=== PATIENT | female | born 2000 | race Caucasian/White ===

== ENCOUNTER 2025-01-08 23:37 | Emergency (ER) | payer OTHER ==
[2025-01-09] MEDS ORDERED: CEFTRIAXONE 1000 MG/VIAL ONE ×2 (00:42→00:43)
[2025-01-09] MEDS ORDERED: NA CHLORIDE 0.9% 1,000 ML ONE (00:42)
[2025-01-09 00:53] LABS: Absolute Eosinophils 0.1 K/uL (0-0.5); Absolute Lymphocytes (CBC) 2.1 K/uL (0.7-4.9); Absolute Monocytes 0.8 K/uL (0.1-1.3); Absolute Neutrophil 6.1 K/uL (1.8-8.0); Basophils % 0.5 % (0-1.3); Eosinophils % 0.6 % (0-4.4); Hematocrit 46.7 % (36.0-45.0); Hemoglobin 15.6 g/dL (12.0-15.0); Lymphocytes % 23.2 % (15.3-44.8); MCH 27.7 pg (27.0-35.0); MCHC 33.3 g/dL (32.0-36.0); MPV 8.1 fL (7.6-11.3); Monocytes % 8.6 % (3.3-12.3); Neutrophils % 67.1 % (41.7-73.7); Nucleated RBC Absolute Count 0.1 (0-0); Nucleated Red Blood Cells % 0.6 % (0-0); Platelets 226 thou/uL (152-406); RBC Red Blood Cell Count 5.62 M/uL (3.86-4.86); Red Cell Distribution Width 12.8 % (12.1-15.2)
[2025-01-09 00:54] LABS: Specific Gravity 1.012 (1.005-1.030)
[2025-01-09 01:02] LABS: Specific Gravity 1.012 (1.005-1.030); Sqamous Epithelial <5 /HPF (None Seen); Urine Bacteria <20 /HPF (<20); Urine Bilirubin NEGATIVE (Negative); Urine Blood Trace (Negative); Urine Clarity Extremely Turbid (Clear); Urine Color Light-Yellow (Yellow); Urine Culture Reflex Order REFLEXED; Urine Glucose NEGATIVE (Negative); Urine Ketones NEGATIVE (Negative); Urine Microscopic Reflex YN ORDER UMIC; Urine Mucus Slight /HPF (None Seen); Urine Nitrite 1+ (Negative); Urine Protein 2+ (Negative); Urine RBC <5 /HPF (None Seen); Urine Urobilinogen Normal (Normal); Urine WBC 20-50 /HPF (<5); Urine WBC Clump Rare /HPF (None Seen)
[2025-01-09 01:17] LABS: Albumin 4.1 g/dL (3.4-5.0); Albumin/Globulin Ratio 0.8 (1.1-1.8); Anion Gap 9.3 mEq/L (5.0-15.0); Bilirubin Total 0.3 mg/dL (0.2-1.0); Globulin 4.9 g/dL (2.3-3.5); Potassium 3.3 mEq/L (3.5-5.1)
[2025-01-09] MEDS ORDERED: levoFLOXacin 250 MG TAB ONE (02:27)
[2025-01-09] MEDS ORDERED: POTASSIUM 25 MEQ EFFERV TAB ONE (02:27)
--- NOTE | 2025-01-09 03:11 | RAD REPORT ---
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 COMPARISON: None. PROCEDURE: Contrast-enhanced images of the abdomen and pelvis were performed from the lung bases to the ischial tuberosities after the administration of IV contrast. In addition multiplanar reformats in the coronal and sagittal plane were obtained and reviewed. An individualized dose optimization technique, Automated Exposure Control, was utilized for the perfo rmed procedure. FINDINGS: Lung bases: The lung bases demonstrate to be clear. Liver: The liver demonstrates to be normal, no focal lesions identified. Gallbladder: The gallbladder demonstrate to be normal. Adrenal glands: The adrenal glands demonstrate to be normal. Pancreas: The pancreas demonstrate to be normal. Spleen: The spleen demonstrate to be within normal limits. Kidneys: The kidneys demonstrate normal uptake of contrast media. There is no evidence for nephroli thiasis and/or hydronephrosis. GI: Grossly the unopacified stomach, small bowel and large bowel demonstrate to be within normal limi ts. No evidence for bowel dilatation and/or free air. The appendix is normal. The left-sided colon demonstrate to be decompressed with no gross abnormalities. : The urinary bladder demonstrate to be unremarkable. Genitalia: The uterus demonstrate to be within normal limits. There is a T-shaped structure within th e endometrial cavity corresponding to a intrauterine device in good position. There are normal adnexal structures. Abdominal aorta: The aorta demonstrate to be partially distended with diffuse circumferential wall th ickening. Retroperitoneum: There is no retroperitoneal lymphadenopathy. There is no evidence for ascites and/or abnormal fluid collections. Bones: The bony structures demonstrate to be within normal limits. No evidence for compression deform ity and/or significant skeletal lesions. Soft tissues: The soft tissues demonstrate to be unremarkable. IMPRESSION: No evidence for nephrolithiasis and/or hydronephrosis. Minimal mucosal thickening of the urinary bladder perhaps related to underdistention, cystitis cannot be excluded. Correlate with urinalysis. Intrauterine device in good position. Otherwise unremarkable CT scan of the abdomen and pelvis with contrast. Electronically signed by: Mesfin Olson MD 01/09/2025 02:18 AM MACHINE TAPER Due to temporary technical issues with the [employer] reporting system, reports are being fermin d by the in-house radiologist without review as a courtesy to ensure prompt reporting the interpreting radiologist is fully responsible for the content of the report. Transcribed Date/Time: 01/09/2025 3:10 AM
--- NOTE | 2025-01-09 03:16 | ER ---
Nurse's Notes [facility] Name: Katrina Jackson Age: 24 yrs Sex: Female : 2000 Arrival Date: 01/08/2025 Time: 23:37 Bed 4 Private MD: Diagnosis: Dysuria;UTI/ Urinary tract infection, site not specified Presentation: 01/08 23:55 Chief complaint: Patient states: fever and lower back pain. History of kidney issues. vc1 Coronavirus screen: Client denies travel out of the [place] in the last 14 days. At this time, the client does not indicate any symptoms associated with coronavirus-19. Ebola Screen: Patient negative for fever greater than or equal to 101.5 degrees Fahrenheit, and additional compatible Ebola Virus Disease symptoms Patient denies exposure to infectious person. Patient denies travel to an Ebola-affected area in the 21 days before illness onset. No symptoms or risks identified at this time. Risk Assessment: Do you want to hurt yourself or someone else? Patient reports no desire to harm self or others. Onset of symptoms was January 08, 2025. 23:55 Method Of Arrival: Ambulatory vc1 23:55 Acuity: CHELO 3 vc1 23:55 Initial Sepsis Screen: Does the patient meet any 2 criteria? No. Patient's initial vc1 sepsis screen is negative. Does the patient have a suspected source of infection? No. Patient's initial sepsis screen is negative. Triage Assessment: 23:58 General: Appears in no apparent distress. uncomfortable, Behavior is calm, cooperative, vc1 appropriate for age. Pain: Complains of pain in low back area Pain does not radiate. Pain currently is 8 out of 10 on a pain scale. Quality of pain is described as sharp. Neuro: Level of Consciousness is awake, alert, obeys commands, Oriented to person, place, time, situation, Appropriate for age. Respiratory: Airway is patent Respiratory effort is even, unlabored, Respiratory pattern is regular, symmetrical. GI: Abdomen is flat, non-distended. : Reports pain in bilateral in lower back urgency, urinary frequency. TRANSPORTATION BROKER: 23:58 LMP 01/02/2025, unknown vc1 Historical: - Allergies: 23:56 Morphine; vc1 - Home Meds: 23:56 None [Active]; vc1 - PMHx: 23:56 None; vc1 - PSHx: 23:56 ureters reattached; vc1 - Immunization history:: Client reports having NOT received the Covid vaccine. Flu vaccine is not up to date. - Infectious Disease History:: Denies. - Social history:: Smoking status: Patient denies any tobacco usage or history of. - Family history:: not pertinent. Screenin:57 [facility] ED Fall Risk Assessment (Adult) History of falling in the last 3 months, vc1 including since admission No falls in past 3 months (0 pts) Confusion or Disorientation No (0 pts) Intoxicated or Sedated No (0 pts) Impaired Gait No (0 pts) Mobility Assist Device Used No (0 pt) Altered Elimination Yes (1 pt) Score/Fall Risk Level 0 - 2 = Low Risk Oriented to surroundings, Maintained a safe environment, Educated pt \T\ family on fall prevention, incl call for assistance when getting out of bed. Abuse screen: Denies threats or abuse. Nutritional screening: No deficits noted. Tuberculosis screening: No symptoms or risk factors identified. Assessment: 01/09 00:49 General: Appears in no apparent distress. comfortable, Behavior is calm, cooperative, bm8 appropriate for age. Pain: Complains of pain in right low back and right mid back and back and low back area Pain currently is 4 out of 10 on a pain scale. Neuro: No deficits noted. Level of Consciousness is awake, alert, obeys commands, Oriented to person, place, time, situation, Appropriate for age. Cardiovascular: Denies chest pain, Capillary refill < 3 seconds in bilateral fingers Patient's skin is warm and dry. Respiratory: Airway is patent Respiratory effort is even, unlabored, Respiratory pattern is regular, symmetrical. GI: No signs and/or symptoms were reported involving the gastrointestinal system. : Urine is cloudy, Reports burning with urination, pain in suprapubic area flank(s), urgency, urinary frequency, since since yesterday. EENT: No signs and/or symptoms were reported regarding the EENT system. Derm: No signs and/or symptoms reported regarding the dermatologic system. Musculoskeletal: No signs and/or symptoms reported regarding the musculoskeletal system. 01:28 Reassessment: Patient appears in no apparent distress at this time. No changes from bm8 previously documented assessment. Patient and/or family updated on plan of care and expected duration. Pain level reassessed. Patient is alert, oriented x 3, equal unlabored respirations, skin warm/dry/pink. 02:35 Reassessment: Patient appears in no apparent distress at this time. Patient and/or bm8 family updated on plan of care and expected duration. Pain level reassessed. Patient is alert, oriented x 3, equal unlabored respirations, skin warm/dry/pink. Patient denies pain at this time. Patient states feeling better. Patient states symptoms have improved. 03:29 Reassessment: Patient appears in no apparent distress at this time. Patient and/or bm8 family updated on plan of care and expected duration. Pain level reassessed. Patient is alert, oriented x 3, equal unlabored respirations, skin warm/dry/pink. Patient denies pain at this time. Patient states feeling better. Patient states symptoms have improved. Vital Signs: 01/08 23:55 Weight 58.06 kg; Height 5 ft. 2 in. ; Pain 7/10; vc1 16 00:00 BP 121 / 75; Pulse 95; Resp 14; Temp 97.3; Pulse Ox 100% ; vc1 01:28 BP 114 / 76; Pulse 92; Resp 18; Temp 97.3; Pulse Ox 99% ; Pain 3/10; bm8 02:35 BP 113 / 74; Pulse 88; Resp 20; Temp 97.3; Pulse Ox 100% ; Pain 0/10; bm8 03:29 BP 113 / 75; Pulse 85; Resp 18; Temp 97.3; Pulse Ox 100% ; Pain 0/10; bm8 01/08 23:55 Body Mass Index 23.41 (58.06 kg, 157.48 cm) vc1 01/08 23:55 Pain Scale: Adult vc1 01:28 Pain Scale: Adult bm8 02:35 Pain Scale: Adult bm8 03:29 Pain Scale: Adult bm8 [place] Coma Score: 00:49 Eye Response: spontaneous(4). Motor Response: obeys commands(6). Verbal Response: bm8 oriented(5). Total: 15. 01:28 Eye Response: spontaneous(4). Motor Response: obeys commands(6). Verbal Response: bm8 oriented(5). Total: 15. 02:35 Eye Response: spontaneous(4). Motor Response: obeys commands(6). Verbal Response: bm8 oriented(5). Total: 15. 03:29 Eye Response: spontaneous(4). Motor Response: obeys commands(6). Verbal Response: bm8 oriented(5). Total: 15. ED Course: 01/08 23:41 Patient arrived in ED. im 23:54 Mario Pozo MD is Attending Physician. george 23:56 Triage completed. vc1 23:57 Arm band placed on right wrist. vc1 01/09 00:15 No provider procedures requiring assistance completed. bm8 00:15 Initial lab(s) drawn, by me, sent to lab. First set of blood cultures drawn by me, bm8 Urine collected: clean catch specimen, clear. Patient maintains SpO2 saturation greater than 95% on room air. 00:15 Inserted saline lock: 20 gauge in right antecubital area, using aseptic technique. bm8 Blood collected. Flushed with 10 mL NS. 00:18 Janneth Rhoades, RN is Primary Nurse. al5 00:30 Second set of blood cultures drawn by me. bm8 00:49 Patient has correct armband on for positive identification. Placed in gown. Bed in low bm8 position. Call light in reach. Side rails up X 1. Adult w/ patient. Client placed on continuous cardiac and pulse oximetry monitoring. NIBP monitoring applied. Pulse ox on. NIBP on. Door closed. Noise minimized. Warm blanket given. Pillow given. Verbal reassurance given. Head of bed elevated. 01:35 CT Abd/Pelvis - IV Contrast Only In Process Unspecified. EDMS 02:25 Rigoberto Cash, RN is Primary Nurse. bm8 02:47 Provided Education on: call light. vc1 03:29 IV discontinued, intact, bleeding controlled, No redness/swelling at site. Pressure bm8 dressing applied. Administered Medications: 00:48 Drug: NS 0.9% IV 1000 ml IV at 1000 ml once; to be given as a bolus over 60 minutes bm8 Route: IV; Rate: 1000 ml; Site: right antecubital; 02:34 Follow up: Response: No adverse reaction; IV Status: Completed infusion; IV Intake: bm8 1000ml 00:48 Drug: Rocephin IV 2 grams IV at per protocol once; Given slow IV push per pharmarcy bm8 instructions Route: IV; Rate: per protocol; Site: right antecubital; 02:34 Follow up: Response: No adverse reaction; IV Status: Completed infusion bm8 02:34 Drug: Potassium PO Effervescent Tablet 25 mEq PO once; dissolve in 4 ounces of water or bm8 juice Route: PO; 02:41 Follow up: Response: No adverse reaction bm8 02:34 Drug: LevOfloxacin PO 500 mg PO once Route: PO; bm8 02:41 Follow up: Response: No adverse reaction bm8 Medication: 01/08 23:58 VIS not applicable for this client. vc1 Intake: 01/09 02:34 IV: 1000ml; Total: 1000ml. bm8 Outcome: 03:16 Discharge ordered by . george 03:29 Discharged to home ambulatory, bm8 03:29 Discharged to home ambulatory, with friend, 03:29 Condition: stable 03:29 Discharge instructions given to patient, friend, 03:29 Discharge instructions given to Instructed on discharge instructions, follow up and referral plans. no drinking with medication, no driving heavy equipment, medication usage, safety practices, Demonstrated understanding of instructions, follow-up care, medications, Prescriptions given X 3, 03:31 Patient left the ED. bm8 Signatures: Dispatcher [employer] EDMS aMrio Pozo MD MD cha Calcote, Vanessa, RN RN vc1 Skylar Phipps Brad RN RN bm8 Janneth Rhoades RN RN al5
--- NOTE | 2025-01-09 03:16 | EDPHYS ---
Physician Documentation [facility] Name: Katrina Jackson Age: 24 yrs Sex: Female : 2000 Arrival Date: 01/08/2025 Time: 23:37 Bed 4 Private MD: ED Physician Mario Pozo HPI: 01/09 00:15 This 24 yrs old Female presents to ER via Ambulatory with complaints of Low george Back Pain. 00:15 The patient presents with pain that is acute, with no known mechanism of injury. The george symptoms are located in the right mid back and right low back. The pain does not radiate. The problem was sustained from unknown cause. Onset: The symptoms/episode began/occurred yesterday. Modifying factors: The patient symptoms are alleviated by nothing, the patient symptoms are aggravated by any movement. Associated signs and symptoms: The patient has no apparent associated signs or symptoms. Severity of symptoms: At their worst the symptoms were moderate, in the emergency department the symptoms are unchanged. The patient has not experienced similar symptoms in the past. CHANNEL MAN: 01/08 23:58 LMP 01/02/2025, unknown vc1 Historical: - Allergies: 23:56 Morphine; vc1 - Home Meds: 23:56 None [Active]; vc1 - PMHx: 23:56 None; vc1 - PSHx: 23:56 ureters reattached; vc1 - Immunization history:: Client reports having NOT received the Covid vaccine. Flu vaccine is not up to date. - Infectious Disease History:: Denies. - Social history:: Smoking status: Patient denies any tobacco usage or history of. - Family history:: not pertinent. ROS: 01/09 00:15 Constitutional: Negative for fever, chills, and weight loss, Eyes: Negative for injury, george pain, redness, and discharge, ENT: Negative for injury, pain, and discharge, Neck: Negative for injury, pain, and swelling, Cardiovascular: Negative for chest pain, palpitations, and edema, Respiratory: Negative for shortness of breath, cough, wheezing, and pleuritic chest pain, Abdomen/GI: Negative for abdominal pain, nausea, vomiting, diarrhea, and constipation, MS/Extremity: Negative for injury and deformity, Skin: Negative for injury, rash, and discoloration, Neuro: Negative for headache, weakness, numbness, tingling, and seizure, Psych: Negative for depression, anxiety, suicide ideation, homicidal ideation, and hallucinations, Allergy/Immunology: Negative for hives, rash, and allergies, Endocrine: Negative for neck swelling, polydipsia, polyuria, polyphagia, and marked weight changes, Hematologic/Lymphatic: Negative for swollen nodes, abnormal bleeding, and unusual bruising, Back: Positive for flank pain, on the right, Exam: 00:15 Constitutional: This is a well developed, well nourished patient who is awake, alert, george and in no acute distress. Head/Face: Normocephalic, atraumatic. Eyes: Pupils equal round and reactive to light, extra-ocular motions intact. Lids and lashes normal. Conjunctiva and sclera are non-icteric and not injected. Cornea within normal limits. Periorbital areas with no swelling, redness, or edema. ENT: Nares patent. No nasal discharge, no septal abnormalities noted. Tympanic membranes are normal and external auditory canals are clear. Oropharynx with no redness, swelling, or masses, exudates, or evidence of obstruction, uvula midline. Mucous membranes moist. Neck: Trachea midline, no thyromegaly or masses palpated, and no cervical lymphadenopathy. Supple, full range of motion without nuchal rigidity, or vertebral point tenderness. No Meningismus. Chest/axilla: Normal chest wall appearance and motion. Nontender with no deformity. No lesions are appreciated. Cardiovascular: Regular rate and rhythm with a normal S1 and S2. No gallops, murmurs, or rubs. Normal PMI, no JVD. No pulse deficits. Respiratory: Lungs have equal breath sounds bilaterally, clear to auscultation and percussion. No rales, rhonchi or wheezes noted. No increased work of breathing, no retractions or nasal flaring. Abdomen/GI: Soft, non-tender, with normal bowel sounds. No distension or tympany. No guarding or rebound. No evidence of tenderness throughout. Skin: Warm, dry with normal turgor. Normal color with no rashes, no lesions, and no evidence of cellulitis. MS/ Extremity: Pulses equal, no cyanosis. Neurovascular intact. Full, normal range of motion., bilateral aka Neuro: Awake and alert, GCS 15, oriented to person, place, time, and situation. Cranial nerves II-XII grossly intact. Motor strength 5/5 in all extremities. Sensory grossly intact. Cerebellar exam normal. Normal gait. Psych: Awake, alert, with orientation to person, place and time. Behavior, mood, and affect are within normal limits. Vital Signs: 01/08 23:55 Weight 58.06 kg; Height 5 ft. 2 in. ; Pain 7/10; vc1 01/09 00:00 BP 121 / 75; Pulse 95; Resp 14; Temp 97.3; Pulse Ox 100% ; vc1 01:28 BP 114 / 76; Pulse 92; Resp 18; Temp 97.3; Pulse Ox 99% ; Pain 3/10; bm8 02:35 BP 113 / 74; Pulse 88; Resp 20; Temp 97.3; Pulse Ox 100% ; Pain 0/10; bm8 03:29 BP 113 / 75; Pulse 85; Resp 18; Temp 97.3; Pulse Ox 100% ; Pain 0/10; bm8 01/08 23:55 Body Mass Index 23.41 (58.06 kg, 157.48 cm) vc1 01/08 23:55 Pain Scale: Adult vc1 01:28 Pain Scale: Adult bm8 02:35 Pain Scale: Adult bm8 03:29 Pain Scale: Adult bm8 [place] Coma Score: 00:49 Eye Response: spontaneous(4). Motor Response: obeys commands(6). Verbal Response: bm8 oriented(5). Total: 15. 01:28 Eye Response: spontaneous(4). Motor Response: obeys commands(6). Verbal Response: bm8 oriented(5). Total: 15. 02:35 Eye Response: spontaneous(4). Motor Response: obeys commands(6). Verbal Response: bm8 oriented(5). Total: 15. 03:29 Eye Response: spontaneous(4). Motor Response: obeys commands(6). Verbal Response: bm8 oriented(5). Total: 15. MDM: 01/08 23:54 Medical Screening Exam initiated [facility] 01/08 23:54 Order name: Urinalysis w/ reflexes; Complete Time: 02:16 [facility] 01/08 23:54 Order name: PREGU; Complete Time: 02:16 [facility] 01/09 00:12 Order name: CBC with Diff; Complete Time: 02:16 [facility] 01/09 00:12 Order name: Comprehensive Metabolic Panel; Complete Time: 02:16 [facility] 01/09 00:12 Order name: Blood Culture Adult (2) [facility] 01/09 00:12 Order name: Urine Culture [facility] 01/09 00:12 Order name: CT Abd/Pelvis - IV Contrast Only george Administered Medications: 01/09 00:48 Drug: NS 0.9% IV 1000 ml IV at 1000 ml once; to be given as a bolus over 60 minutes bm8 Route: IV; Rate: 1000 ml; Site: right antecubital; 02:34 Follow up: Response: No adverse reaction; IV Status: Completed infusion; IV Intake: bm8 1000ml 00:48 Drug: Rocephin IV 2 grams IV at per protocol once; Given slow IV push per pharmarcy bm8 instructions Route: IV; Rate: per protocol; Site: right antecubital; 02:34 Follow up: Response: No adverse reaction; IV Status: Completed infusion bm8 02:34 Drug: Potassium PO Effervescent Tablet 25 mEq PO once; dissolve in 4 ounces of water or bm8 juice Route: PO; 02:41 Follow up: Response: No adverse reaction bm8 02:34 Drug: LevOfloxacin PO 500 mg PO once Route: PO; bm8 02:41 Follow up: Response: No adverse reaction bm8 Disposition Summary: 01/09/25 03:16 Discharge Ordered Notes: Location: Home [facility] Problem: new [facility] Symptoms: have improved george Condition: Fair george Diagnosis - Dysuria george - UTI/ Urinary tract infection, site not specified george Followup: george - With: Private Physician - When: 2 - 3 days - Reason: Recheck today's complaints, Continuance of care, Re-evaluation by your physician Discharge Instructions: - Discharge Summary Sheet george - Dysuria george - Urinary Tract Infection, Adult george - Urinary Tract Infection, Adult, [id number] Forms: - Medication Reconciliation Form [facility] - Antibiotic Education [facility] - Prescription Opioid Use [facility] - Patient Portal Instructions [facility] - Leadership Thank You Letter [facility] Prescriptions: - cefdinir 300 mg Oral capsule - take 1 capsule ORAL route every 12 hours; 14 capsule; Refills: 0, Product george Selection Permitted - Pyridium 200 mg Oral Tablet - take 1 tablet ORAL route every 8 hours for 3 days; 9 tablet; Refills: 0, george Product Selection Permitted - levofloxacin 250 mg Oral tablet - take 1 tablet ORAL route once daily; 7 tablet; Refills: 0, Product Selection george Permitted Signatures: Dispatcher [employer] EDMario Nelson MD MD cha Calcote, Vanessa, RN RN vc1 Rigoberto Cash RN RN bm8 Corrections: (The following items were deleted from the chart) 00:13 00:13 CBC+H.LAB.BRZ ordered. EDMS EDMS 00:13 00:13 COMPREHENSIVE METABOLIC PANEL+C.LAB.BRZ ordered. EDMS EDMS 00:13 00:13 BLOOD CULTURE*+BA.LAB.BRZ ordered. EDMS EDMS 00:13 00:13 Urine Culture+BA.LAB.BRZ ordered. EDMS EDMS 00:30 01/08 23:55 Lumbar Spine 3 Views+RAD.RAD.BRZ ordered. EDMS EDMS
[2025-01-09 03:46] VITALS: TEMP 97.3
[2025-01-09 03:58] VITALS: O2SAT 100
[2025-01-09 03:59] VITALS: BP 113/75
== END 2025-01-09 03:31 | disposition home or self-care (01) ==
LOC: ER 23:37
DX: N39.0 Urinary tract infection, site not specified (principal)
CPT/HCPCS: 87040 ×2; 87088; 85025; 81001; 87086; 36415; 81025; 80053; 74177; Q9967; J7030; J0696 ×2; 87077; 87186; 96365; 96366; 99284